=== PATIENT | male | born 1950 | race Caucasian/White ===

== ENCOUNTER → 2018-01-02 | Outpatient (REF) | payer BC, MEDICARE | LOC: M SMT 12:53 | DX: R97.20 Elevated prostate specific antigen [PSA] (principal) | CPT/HCPCS: 87086 ==

== ENCOUNTER 2019-02-17 10:17 | Day surgery (SDC) | payer MEDICARE, BC ==
[~2019-02-17] VITALS: Ht 170.2 cm; Wt 80.7 kg
[~2019-02-17 10:17] MED LIST: ADV100INH INH; CLOT1CRE2 TOP; D 101000 PO; ECOT81TA5 PO; FINA5TAB2 PO; FISH1000 PO; FLOM0.4C39 PO; FLUT50SP21; LIDOCAINE 2% INJ 100 MG/5 ML SDV (FOR ANES.) As Ordered ONE; LISI-542 PO; NEUR400C PO; NO ITAB PO; NS 1,000 ML IV ONE; PARO40TA3 PO; PROPOFOL 200 MG/20 ML VIAL As Ordered ONE; ROSU10TA6 PO; VENTAER INH; XANA0.25 PO; ZANT150T40 PO; ZETI10TA30 PO
[2019-02-17] MEDS ORDERED: PROPOFOL 200 MG/20 ML VIAL As Ordered ONE (11:17)
--- NOTE | 2019-02-17 11:20 | ROOR ---
Patient Name: Shay Chou Procedure Date: 02/17/2019 10:58 AM Date of : 1950 Age: 69 Room: [facility] Gender: Male Note Status: Finalized Procedure: Total Colonoscopy to Cecum Indications: Screening for colorectal malignant neoplasm Providers: North Ruano MD Referring MD: Cathy Aguilar DO Requesting Provider: Medicines: Monitored Anesthesia Care Complications: No immediate complications. Procedure: Pre-Anesthesia Assessment: - The heart rate, respiratory rate, oxygen saturations, blood pressure, adequacy of pulmonary ventilation, and response to care were monitored throughout the procedure. The Colonoscope was introduced through the anus and advanced to the cecum, identified by appendiceal orifice and ileocecal valve. The colonoscopy was performed without difficulty. The patient tolerated the procedure well. The quality of the bowel preparation was excellent. Findings: The perianal and digital rectal examinations were normal. Non-bleeding internal hemorrhoids were found during retroflexion. The hemorrhoids were small and Grade I (internal hemorrhoids that do not prolapse). Multiple small and large-mouthed diverticula were found in the recto-sigmoid colon, sigmoid colon and descending colon. The exam was otherwise without abnormality on direct and retroflexion views. Impression: - Non-bleeding internal hemorrhoids. - Diverticulosis in the recto-sigmoid colon, in the sigmoid colon and in the descending colon. - The examination was otherwise normal on direct and retroflexion views. - No specimens collected. - The exam was otherwise normal to the cecum. Recommendation: - Patient has a contact number available for emergencies. The signs and symptoms of potential delayed complications were discussed with the patient. Return to normal activities tomorrow. Written discharge instructions were provided to the patient. - High fiber diet. - Discharge patient to home. - Continue present medications. - Repeat colonoscopy for symptoms only. - Return to referring physician. - The findings and recommendations were discussed with the patient's family. North Ruano MD North Ruano MD 02/17/2019 11:19:51 AM Electronically signed by North Ruano MD Number of Addenda: 0 Note Initiated On: 02/17/2019 10:58 AM Estimated Blood Loss: Estimated blood loss: none.
[2019-02-17 11:42] VITALS: BP 105/64
== END 2019-02-17 11:44 | disposition home or self-care (01) ==
LOC: M OPP 10:17
PROVIDERS: ATTEND Internal Medicine Gastroenterology
DX: Z12.11 Encounter for screening for malignant neoplasm of colon (principal); K64.0 First degree hemorrhoids; K57.30 Diverticulosis of large intestine without perforation or abscess without bleeding; I10 Essential (primary) hypertension; E78.5 Hyperlipidemia, unspecified; K21.9 Gastro-esophageal reflux disease without esophagitis; R12 Heartburn; F41.9 Anxiety disorder, unspecified; G62.9 Polyneuropathy, unspecified; J44.9 Chronic obstructive pulmonary disease, unspecified; N40.1 Benign prostatic hyperplasia with lower urinary tract symptoms; Z88.1 Allergy status to other antibiotic agents; Z79.82 Long term (current) use of aspirin; Z79.899 Other long term (current) drug therapy

== ENCOUNTER → 2020-01-05 | Outpatient (REF) | payer MEDICARE, BC ==
[~2020-01-05] MED LIST changes: -CLOT1CRE2 TOP; +CLOT1CRE56 TOP; +FLUT15.820; -FLUT50SP21; -LIDOCAINE 2% INJ 100 MG/5 ML SDV (FOR ANES.) As Ordered ONE; -NS 1,000 ML IV ONE; -PROPOFOL 200 MG/20 ML VIAL As Ordered ONE; +ZETI10TA16 PO; -ZETI10TA30 PO
== END ==
LOC: M SMT 16:41
PROVIDERS: ATTEND Nurse Practitioner Family
DX: R97.20 Elevated prostate specific antigen [PSA] (principal); Z79.899 Other long term (current) drug therapy

== ENCOUNTER → 2020-08-05 | Outpatient (REF) | payer MEDICARE, BC ==
[2020-08-07 23:25] LABS: PSA TOTAL 2.3 ng/mL (0.0-4.0)
== END ==
LOC: M LAB REF 16:36
PROVIDERS: ATTEND Internal Medicine
DX: R97.20 Elevated prostate specific antigen [PSA] (principal)

== ENCOUNTER → 2020-12-03 | Outpatient (REF) | payer MEDICARE, BC ==
[~2020-12-03] MED LIST changes: -LISI-542 PO; +LISI-898 PO
== END ==
LOC: M LAB REF 12:08
PROVIDERS: ATTEND Internal Medicine
DX: G60.9 Hereditary and idiopathic neuropathy, unspecified (principal)

== ENCOUNTER → 2021-11-17 | Outpatient (CLI) | payer MEDICARE, BC ==
[~2021-11-17] MED LIST changes: -LISI-898 PO; +LISI5TAB11 PO
== END ==
LOC: M PLALAB 15:19
PROVIDERS: ATTEND Internal Medicine Pulmonary Disease
DX: Z11.52 Encounter for screening for COVID-19 (principal)

== ENCOUNTER → 2022-04-27 | Outpatient (CLI) | payer MEDICARE, BC | LOC: M WUC 11:57 | PROVIDERS: ATTEND Internal Medicine | DX: M25.551 Pain in right hip (principal) ==

== ENCOUNTER → 2022-11-21 | Outpatient (CLI) | payer OTHER | LOC: M PLAIMG 11:07 | PROVIDERS: ATTEND Internal Medicine Pulmonary Disease | DX: Z57.39 Occupational exposure to other air contaminants (principal) ==

== ENCOUNTER → 2022-11-25 | Outpatient (CLI) | payer MEDICARE, OTHER | LOC: M RAD 09:01 | PROVIDERS: ATTEND Nurse Practitioner Family | DX: M54.59 Other low back pain (principal) ==

== ENCOUNTER → 2022-12-07 | Outpatient (CLI) | payer MEDICARE, BC | LOC: M PLALAB 09:56 | PROVIDERS: ATTEND Physician Assistant | DX: R97.20 Elevated prostate specific antigen [PSA] (principal); Z88.1 Allergy status to other antibiotic agents | CPT/HCPCS: 36415; 84153; G0463 ==

== ENCOUNTER 2023-02-01 02:07 | Inpatient (IN) | payer MEDICARE, BC ==
[~2023-02-01] VITALS: Ht 170.2 cm; Wt 82.8 kg
[2023-02-01 02:41] LABS: BASO % 0.4 % (0.0-1.0); EOS # 0.3 10^3/uL (0.0-0.5); EOS % 3.3 % (0.0-3.0); HEMATOCRIT 41.8 % (42.0-52.0); HEMOGLOBIN 14.5 g/dl (13.5-17.5); LYMPH # 1.1 10^3/uL (1.5-5.0); LYMPH % 14.1 % (24.0-44.0); MEAN CORPUSCULAR HEMOGLOBIN 33.4 pg (27.0-33.0); MEAN CORPUSCULAR HGB CONC 34.7 g/dl (32.0-36.5); MEAN CORPUSCULAR VOLUME 96.3 fl (80.0-96.0); MONO # 0.9 10^3/uL (0.0-0.8); MONO % 11.6 % (2.0-8.0); NEUTROPHILS # 5.5 10^3/uL (1.5-8.5); NEUTROPHILS % 70.2 % (36.0-66.0); PLATELET COUNT, AUTOMATED 256 10^3/uL (150-450); RED BLOOD COUNT 4.34 10^6/uL (4.30-6.10); WHITE BLOOD COUNT 7.9 10^3/uL (4.0-10.0)
[2023-02-01 03:16] LABS: LIPASE 28 U/L (12-53)
[2023-02-01 03:18] LABS: ALKALINE PHOSPHATASE 71 U/L (46-116); ALT/SGPT 20 U/L (7.0-40); AST/SGOT 24 U/L (<34); BILIRUBIN,DIRECT 0.3 MG/DL (<0.4); BILIRUBIN,TOTAL 1.1 MG/DL (0.3-1.2); BLOOD UREA NITROGEN 26 MG/DL (9-23); CALCIUM LEVEL 9.1 MG/DL (8.3-10.6); CARBON DIOXIDE LEVEL 27 MMOL/L (20-31); CHLORIDE LEVEL 105 MMOL/L (98-107); CREATININE FOR GFR 1.03 MG/DL (0.70-1.30); GLOMERULAR FILTRATION RATE > 60.0 (>42); GLUCOSE, FASTING 132 MG/DL (74-106); POTASSIUM SERUM 4.1 MMOL/L (3.5-5.1); SODIUM LEVEL 141 MMOL/L (136-145); TOTAL PROTEIN 6.8 G/DL (5.7-8.2)
[2023-02-01] MEDS ORDERED: ISOVUE-370 76% 100ML VIAL As Ordered ONE (04:51)
[2023-02-01] MEDS ORDERED: ONDANSETRON 4MG 2ML VIAL IV ONE (05:00)
[2023-02-01] MEDS ORDERED: NS 1,000 ML IV ONE (05:00)
[2023-02-01] MEDS: MORPHINE 2 MG/ML 1ML VIAL IV PRN ×5 (05:16→13:25)
[2023-02-01 05:35] LABS: CK-MB VALUE MASS 2.1 NG/ML (<3.6)
[2023-02-01 05:44] LABS: CPK CREATINE PHOSPHOKINASE 270 U/L (46-171); MB/CK RELATIVE INDEX 0.77 (< OR =4)
[2023-02-01 05:46] LABS: RSV AMPLIFICATION NEGATIVE (NEGATIVE)
[2023-02-01 05:50] LABS: INR 0.9; PARTIAL THROMBOPLASTIN TIME 27.4 SECONDS (24.8-34.2); PROTHROMBIN TIME 12.3 SECONDS (12.5-14.5)
[2023-02-01] MEDS ORDERED: PIPERACILLIN/TAZOBACTAM SOD 3.375 GM in D5W MINI-BAG PLUS 50 ML IV ONE (06:35)
[2023-02-01] MEDS ORDERED: MED REC IN PROGRESS XX SCH (07:05)
[2023-02-01] MEDS ORDERED: LISI10TA22 PO (07:29)
[2023-02-01] MEDS ORDERED: PANT-23 PO (07:50)
[2023-02-01] MEDS ORDERED: KETO2CR TOP (07:50)
[2023-02-01] MEDS ORDERED: GLUCTAB7 PO (07:50)
[2023-02-01] MEDS ORDERED: DULO30CA9 PO (07:50)
[2023-02-01] MEDS ORDERED: VITA100093 PO (07:50)
[2023-02-01] MEDS ORDERED: CLIN1LOT TOP (07:50)
[2023-02-01] MEDS ORDERED: OMEG10002 PO (07:50)
[2023-02-01] MEDS ORDERED: LIDO1PAD TOP (07:50)
[2023-02-01] MEDS ORDERED: TRID0.1C TOP (07:50)
[2023-02-01] MEDS ORDERED: HOME MED LIST COMPLETE! XX SCH (07:55)
[2023-02-01] MEDS: ADVAIR HFA 45/21MCG INHALER INH SCH ×2 (08:00→19:48)
[2023-02-01] MEDS ORDERED: LIDOCAINE 5% (LIDODERM) PATCH TOP PRN (08:05)
[2023-02-01] MEDS ORDERED: ALBUTEROL 90 MCG/ACT 8GM HFA INHALER INH PRN (08:05)
[2023-02-01] MEDS ORDERED: PILL CUTTER 1 EACH XX PRN (08:20)
[2023-02-01 08:53] LABS: INR 0.93; PROTHROMBIN TIME 12.7 SECONDS (12.5-14.5)
[2023-02-01 08:58] VITALS: BP 142/77; TEMP 97.9; O2SAT 94
[2023-02-01] MEDS ORDERED: MORPHINE 4 MG/ML 1ML VIAL IV PRN (09:10)
[2023-02-01] MEDS: GABAPENTIN 400MG CAP PO SCH ×3 (09:23→21:25)
[2023-02-01] MEDS: ONDANSETRON 4MG ORAL DISINTEGRATING TAB SL PRN ×2 (09:24→13:24)
[2023-02-01] MEDS: PIPERACILLIN/TAZOBACTAM SOD 3.375 GM in D5W MINI-BAG PLUS 50 ML IV SCH ×3 (11:59→23:58)
[2023-02-01 14:30] VITALS: BP 113/69; TEMP 101.1; O2SAT 87
[2023-02-01] MEDS: ACETAMINOPHEN TAB 650MG DOSE (2X325MG) PO PRN ×2 (14:45→21:26)
[2023-02-01 15:29] VITALS: TEMP 100.1
[2023-02-01 16:26] VITALS: BP 105/70; TEMP 98.2; O2SAT 91
[2023-02-01 17:07] LABS: BASO % 0.2 % (0.0-1.0); HEMATOCRIT 40.4 % (42.0-52.0); HEMOGLOBIN 13.8 g/dl (13.5-17.5); LYMPH # 0.6 10^3/uL (1.5-5.0); LYMPH % 2.9 % (24.0-44.0); MEAN CORPUSCULAR HEMOGLOBIN 33.2 pg (27.0-33.0); MEAN CORPUSCULAR HGB CONC 34.2 g/dl (32.0-36.5); MEAN CORPUSCULAR VOLUME 97.1 fl (80.0-96.0); NEUTROPHILS # 17.7 10^3/uL (1.5-8.5); NEUTROPHILS % 88.2 % (36.0-66.0); PLATELET COUNT, AUTOMATED 254 10^3/uL (150-450); RED BLOOD COUNT 4.16 10^6/uL (4.30-6.10)
[2023-02-01] MEDS: LR 1,000 ML IV SCH (17:12)
[2023-02-01 17:35] LABS: MONO # 1.6 10^3/uL (0.0-0.8)
[2023-02-01 17:45] LABS: ALBUMIN 3.6 G/DL (3.2-5.2); ALKALINE PHOSPHATASE 60 U/L (46-116); ALT/SGPT 42 U/L (7.0-40); AST/SGOT 48 U/L (<34); BILIRUBIN,DIRECT 0.9 MG/DL (<0.4); BILIRUBIN,TOTAL 2.5 MG/DL (0.3-1.2); BLOOD UREA NITROGEN 23 MG/DL (9-23); CALCIUM LEVEL 9.1 MG/DL (8.3-10.6); CARBON DIOXIDE LEVEL 26 MMOL/L (20-31); CHLORIDE LEVEL 103 MMOL/L (98-107); CREATININE FOR GFR 1.06 MG/DL (0.70-1.30); GLOMERULAR FILTRATION RATE > 60.0 (>42); GLUCOSE, FASTING 108 MG/DL (74-106); POTASSIUM SERUM 4.1 MMOL/L (3.5-5.1); SODIUM LEVEL 137 MMOL/L (136-145); TOTAL PROTEIN 6.3 G/DL (5.7-8.2)
[2023-02-01 20:47] VITALS: BP 108/67; TEMP 98.2; O2SAT 93
[2023-02-01] MEDS: EZETIMIBE 10MG TABLET (ZETIA) PO SCH (21:24)
[2023-02-01] MEDS: OMEGA-3 1000MG CAPSULE PO SCH (21:24)
[2023-02-01] MEDS: VITAMIN D 1,000 INTERNATIONAL UNITS TABLET PO SCH (21:24)
[2023-02-01] MEDS: FINASTERIDE 5MG TAB PO SCH (21:24)
[2023-02-01] MEDS: ROSUVASTATIN 10 MG TAB (CRESTOR) PO SCH (21:25)
[2023-02-01] MEDS: PANTOPRAZOLE 40MG TAB (PROTONIX) PO SCH (21:25)
[2023-02-01] MEDS: TAMSULOSIN 0.4 MG CAP PO SCH (21:25)
[2023-02-02] VITALS (9 sets, daily range): BP systolic 100–117; BP diastolic 50–73; TEMP 97–99.7; O2SAT 90–92
[2023-02-02] MEDS: LR 1,000 ML IV SCH (01:34)
[2023-02-02 06:06] LABS: HEMOGLOBIN 12.8 g/dl (13.5-17.5); MEAN CORPUSCULAR HGB CONC 33.7 g/dl (32.0-36.5); MEAN CORPUSCULAR VOLUME 97.9 fl (80.0-96.0); PLATELET COUNT, AUTOMATED 212 10^3/uL (150-450); RED BLOOD COUNT 3.88 10^6/uL (4.30-6.10); WHITE BLOOD COUNT 13.1 10^3/uL (4.0-10.0)
[2023-02-02 06:25] LABS: BLOOD UREA NITROGEN 24 MG/DL (9-23); CALCIUM LEVEL 7.8 MG/DL (8.3-10.6); CARBON DIOXIDE LEVEL 29 MMOL/L (20-31); CHLORIDE LEVEL 104 MMOL/L (98-107); CREATININE FOR GFR 1.16 MG/DL (0.70-1.30); GLOMERULAR FILTRATION RATE > 60.0 (>42); GLUCOSE, FASTING 103 MG/DL (74-106); POTASSIUM SERUM 4.3 MMOL/L (3.5-5.1); SODIUM LEVEL 138 MMOL/L (136-145)
[2023-02-02 06:26] LABS: ALBUMIN 3.1 G/DL (3.2-5.2); BILIRUBIN,DIRECT 0.7 MG/DL (<0.4); BILIRUBIN,TOTAL 4.2 MG/DL (0.3-1.2); TOTAL PROTEIN 5.6 G/DL (5.7-8.2)
[2023-02-02] MEDS: PIPERACILLIN/TAZOBACTAM SOD 3.375 GM in D5W MINI-BAG PLUS 50 ML IV SCH ×3 (06:38→20:27)
[2023-02-02] MEDS: ADVAIR HFA 45/21MCG INHALER INH SCH ×2 (07:45→20:00)
[2023-02-02] MEDS: GABAPENTIN 400MG CAP PO SCH ×3 (09:14→20:27)
[2023-02-02] MEDS ORDERED: LIDOCAINE 1% SDV 30ML VIAL As Ordered ONE (15:03)
[2023-02-02] MEDS ORDERED: SUGAMMADEX SODIUM 500 MG/5 ML VIAL (BRIDION) As Ordered ONE (15:22)
[2023-02-02] MEDS ORDERED: MIDAZOLAM INJ 2MG/2ML VIAL As Ordered ONE (15:22)
[2023-02-02] MEDS ORDERED: LIDOCAINE 2% 100MG/5ML SDV (FOR ANES.) As Ordered ONE (15:22)
[2023-02-02] MEDS ORDERED: fentaNYL 100 MCG/2 ML INJECTION As Ordered ONE ×2 (15:22→17:01)
[2023-02-02] MEDS ORDERED: propofoL 200 MG/20 ML VIAL As Ordered ONE (15:23)
[2023-02-02] MEDS ORDERED: ROCURONIUM BROMIDE 50MG/5ML VIAL As Ordered ONE (15:23)
[2023-02-02] MEDS ORDERED: ONDANSETRON 4MG 2ML VIAL As Ordered ONE (15:25)
[2023-02-02] MEDS: INDOCYANINE GREEN 25MG VIAL (IC-GREEN) As Ordered ONE (16:19)
[2023-02-02] MEDS ORDERED: KETOROLAC 60MG 2ML VIAL As Ordered ONE (18:02)
[2023-02-02] MEDS ORDERED: PHENYLephrine 500MCG 5ML (100MCG/ML) SYRINGE As Ordered ONE (18:13)
[2023-02-02] MEDS ORDERED: fentaNYL 100 MCG/2 ML INJECTION IV PRN (18:20)
[2023-02-02] MEDS ORDERED: LR 1,000 ML IV SCH (18:20)
[2023-02-02] MEDS ORDERED: ONDANSETRON 4MG 2ML VIAL IV PRN (18:20)
[2023-02-02] MEDS: VITAMIN D 1,000 INTERNATIONAL UNITS TABLET PO SCH (20:27)
[2023-02-02] MEDS: PANTOPRAZOLE 40MG TAB (PROTONIX) PO SCH (20:27)
[2023-02-02] MEDS: ROSUVASTATIN 10 MG TAB (CRESTOR) PO SCH (20:27)
[2023-02-02] MEDS: FINASTERIDE 5MG TAB PO SCH (20:27)
[2023-02-02] MEDS: TAMSULOSIN 0.4 MG CAP PO SCH (20:27)
[2023-02-02] MEDS: OMEGA-3 1000MG CAPSULE PO SCH (20:27)
[2023-02-02] MEDS: ACETAMINOPHEN TAB 650MG DOSE (2X325MG) PO PRN (20:28)
[2023-02-02] MEDS: EZETIMIBE 10MG TABLET (ZETIA) PO SCH (20:32)
[2023-02-03] VITALS (8 sets, daily range): BP systolic 107–121; BP diastolic 59–69; TEMP 97.2–98.1; O2SAT 88–93
[2023-02-03] MEDS: PIPERACILLIN/TAZOBACTAM SOD 3.375 GM in D5W MINI-BAG PLUS 50 ML IV SCH ×4 (01:33→17:07)
[2023-02-03] MEDS: MORPHINE 2 MG/ML 1ML VIAL IV PRN (03:55)
[2023-02-03 06:31] LABS: HEMATOCRIT 35.6 % (42.0-52.0); HEMOGLOBIN 12.2 g/dl (13.5-17.5); MEAN CORPUSCULAR HGB CONC 34.3 g/dl (32.0-36.5); MEAN CORPUSCULAR VOLUME 99.2 fl (80.0-96.0); PLATELET COUNT, AUTOMATED 204 10^3/uL (150-450); RED BLOOD COUNT 3.59 10^6/uL (4.30-6.10); WHITE BLOOD COUNT 12.5 10^3/uL (4.0-10.0)
[2023-02-03 07:08] LABS: ALBUMIN 2.9 G/DL (3.2-5.2); ALKALINE PHOSPHATASE 63 U/L (46-116); ALT/SGPT 40 U/L (7.0-40); AST/SGOT 34 U/L (<34); BILIRUBIN,TOTAL 2.6 MG/DL (0.3-1.2); BLOOD UREA NITROGEN 18 MG/DL (9-23); CALCIUM LEVEL 8.2 MG/DL (8.3-10.6); CARBON DIOXIDE LEVEL 27 MMOL/L (20-31); CHLORIDE LEVEL 103 MMOL/L (98-107); CREATININE FOR GFR 1.16 MG/DL (0.70-1.30); GLOMERULAR FILTRATION RATE > 60.0 (>42); GLUCOSE, FASTING 132 MG/DL (74-106); POTASSIUM SERUM 4.1 MMOL/L (3.5-5.1); SODIUM LEVEL 138 MMOL/L (136-145); TOTAL PROTEIN 5.5 G/DL (5.7-8.2)
[2023-02-03] MEDS: ADVAIR HFA 45/21MCG INHALER INH SCH ×2 (08:14→19:19)
[2023-02-03] MEDS: ACETAMINOPHEN TAB 650MG DOSE (2X325MG) PO PRN (08:53)
[2023-02-03] MEDS: GABAPENTIN 400MG CAP PO SCH ×3 (08:53→21:39)
[2023-02-03] MEDS ORDERED: ASPIRIN 81MG ENTERIC TABLET PO SCH (21:00)
[2023-02-03] MEDS ORDERED: DULoxetine 30MG CAPSULE (CYMBALTA) PO SCH (21:00)
[2023-02-03] MEDS: EZETIMIBE 10MG TABLET (ZETIA) PO SCH (21:38)
[2023-02-03] MEDS: TAMSULOSIN 0.4 MG CAP PO SCH (21:38)
[2023-02-03] MEDS: OMEGA-3 1000MG CAPSULE PO SCH (21:38)
[2023-02-03] MEDS: VITAMIN D 1,000 INTERNATIONAL UNITS TABLET PO SCH (21:38)
[2023-02-03] MEDS: FINASTERIDE 5MG TAB PO SCH (21:39)
[2023-02-03] MEDS: ROSUVASTATIN 10 MG TAB (CRESTOR) PO SCH (21:39)
[2023-02-03] MEDS: PANTOPRAZOLE 40MG TAB (PROTONIX) PO SCH (21:39)
[2023-02-04 06:00] VITALS: BP 133/79; TEMP 98.2; O2SAT 90
[2023-02-04 06:38] LABS: HEMATOCRIT 33.5 % (42.0-52.0); HEMOGLOBIN 11.4 g/dl (13.5-17.5); MEAN CORPUSCULAR HEMOGLOBIN 33.4 pg (27.0-33.0); MEAN CORPUSCULAR VOLUME 98.2 fl (80.0-96.0); PLATELET COUNT, AUTOMATED 245 10^3/uL (150-450); RED BLOOD COUNT 3.41 10^6/uL (4.30-6.10); WHITE BLOOD COUNT 10.9 10^3/uL (4.0-10.0)
[2023-02-04] MEDS: PIPERACILLIN/TAZOBACTAM SOD 3.375 GM in D5W MINI-BAG PLUS 50 ML IV SCH ×3 (06:51)
[2023-02-04 07:11] LABS: BLOOD UREA NITROGEN 16 MG/DL (9-23); CALCIUM LEVEL 8.3 MG/DL (8.3-10.6); CARBON DIOXIDE LEVEL 28 MMOL/L (20-31); CHLORIDE LEVEL 107 MMOL/L (98-107); CREATININE FOR GFR 1.03 MG/DL (0.70-1.30); GLOMERULAR FILTRATION RATE > 60.0 (>42); GLUCOSE, FASTING 114 MG/DL (74-106); POTASSIUM SERUM 3.6 MMOL/L (3.5-5.1); SODIUM LEVEL 143 MMOL/L (136-145)
[2023-02-04] MEDS: ADVAIR HFA 45/21MCG INHALER INH SCH (07:30)
[2023-02-04] MEDS: GABAPENTIN 400MG CAP PO SCH (08:25)
[2023-02-04] MEDS ORDERED: AUGMENTIN 875 MG TAB PO SCH (09:00)
[2023-02-04] MEDS ORDERED: AMOX875T2 PO ×2 (11:18→14:11)
== END 2023-02-04 14:56 | disposition home or self-care (01) | DRG 418 ==
LOC: M ED 02:07 → M ED INP 07:48 → ENRESERV 08:14 → M MSPAV 09:24
PROVIDERS: ADMIT Student in an Organized Health Care Education/Training Program; ATTEND Student in an Organized Health Care Education/Training Program
PROC: 8E0W4CZ Robotic Assisted Procedure of Trunk Region, Percutaneous Endoscopic Approach (ICD-10-PCS; 2023-02-02)
PROC: BF52200 Other Imaging of Gallbladder using Fluorescing Agent, Indocyanine Green Dye, Intraoperative (ICD-10-PCS; 2023-02-02)
PROC: 0FT44ZZ Resection of Gallbladder, Percutaneous Endoscopic Approach (ICD-10-PCS; principal; 2023-02-02 15:00)
DX: K80.00 Calculus of gallbladder with acute cholecystitis without obstruction (principal); K56.7 Ileus, unspecified; J96.11 Chronic respiratory failure with hypoxia; I10 Essential (primary) hypertension; E78.5 Hyperlipidemia, unspecified; F32.A Depression, unspecified; G89.29 Other chronic pain; N40.0 Benign prostatic hyperplasia without lower urinary tract symptoms; K57.90 Diverticulosis of intestine, part unspecified, without perforation or abscess without bleeding; K21.9 Gastro-esophageal reflux disease without esophagitis; J45.909 Unspecified asthma, uncomplicated; J44.9 Chronic obstructive pulmonary disease, unspecified; K44.9 Diaphragmatic hernia without obstruction or gangrene; Z79.82 Long term (current) use of aspirin; Z79.899 Other long term (current) drug therapy; Z88.1 Allergy status to other antibiotic agents

== ENCOUNTER → 2023-11-26 | Outpatient (CLI) | payer OTHER, MEDICARE, BC ==
[~2023-11-26] MED LIST changes: +AMOX875T2 PO; +CLIN1LOT TOP; +DULO30CA9 PO; +EZET10TA58 PO; +GLUCTAB7 PO; +KETO2CR TOP; +LIDO1PAD TOP; +LISI10TA22 PO; +OMEG10002 PO; +PANT-23 PO; -ROSU10TA6 PO; +ROSU10TA61 PO; +TRID0.1C TOP; +VITA100093 PO; -ZETI10TA16 PO
== END ==
LOC: M PLAIMG 15:07
PROVIDERS: ATTEND Internal Medicine Pulmonary Disease
DX: Z57.39 Occupational exposure to other air contaminants (principal)

== ENCOUNTER → 2024-03-04 | Outpatient (REF) | payer BC, MEDICARE, OTHER | LOC: M SFHCADAM 16:51 | PROVIDERS: ATTEND Physician Assistant | DX: R21 Rash and other nonspecific skin eruption (principal); Z53.9 Procedure and treatment not carried out, unspecified reason ==

== ENCOUNTER → 2024-03-05 | Outpatient (CLI) | payer BC, MEDICARE, OTHER | LOC: M PLALAB 10:58 | PROVIDERS: ATTEND Physician Assistant | DX: R21 Rash and other nonspecific skin eruption (principal); Z11.3 Encounter for screening for infections with a predominantly sexual mode of transmission; Z72.89 Other problems related to lifestyle ==

== ENCOUNTER → 2024-11-25 | Outpatient (CLI) | payer OTHER, MEDICARE, BC ==
[~2024-11-25] MED LIST changes: -ADV100INH INH; +ADVA1AER8 INH; -FLOM0.4C39 PO; +TAMS-18 PO
== END ==
LOC: M PLAIMG 11:28
PROVIDERS: ATTEND Internal Medicine Pulmonary Disease
DX: Z57.39 Occupational exposure to other air contaminants (principal)

== ENCOUNTER 2025-02-16 13:26 | Emergency (ER) | payer OTHER, MEDICARE, BC ==
[~2025-02-16] VITALS: Ht 170.2 cm; Wt 81.8 kg
[2025-02-16] MEDS: ACETAMINOPHEN 500 MG TAB PO ONE (14:11)
[2025-02-16 15:40] VITALS: O2SAT 94
[2025-02-16 16:00] VITALS: BP 127/78; TEMP 97.8; O2SAT 94
== END 2025-02-16 16:02 | disposition home or self-care (01) ==
LOC: M ED 13:26
DX: S13.4XXA Sprain of ligaments of cervical spine, initial encounter (principal); S39.012A Strain of muscle, fascia and tendon of lower back, initial encounter; Y92.9 Unspecified place or not applicable; Y93.9 Activity, unspecified; Y99.9 Unspecified external cause status; V49.49XA Driver injured in collision with other motor vehicles in traffic accident, initial encounter; I10 Essential (primary) hypertension; E78.5 Hyperlipidemia, unspecified; F41.9 Anxiety disorder, unspecified; F32.A Depression, unspecified; Z88.1 Allergy status to other antibiotic agents; Z79.51 Long term (current) use of inhaled steroids; Z79.2 Long term (current) use of antibiotics; Z79.1 Long term (current) use of non-steroidal anti-inflammatories (NSAID); Z79.899 Other long term (current) drug therapy; Z79.810 Long term (current) use of selective estrogen receptor modulators (SERMs)

== ENCOUNTER → 2025-03-24 | Outpatient (CLI) | payer MEDICARE, OTHER | LOC: M SLEEP 20:00 | PROVIDERS: ATTEND Nurse Practitioner Family | DX: R53.82 Chronic fatigue, unspecified (principal); R06.83 Snoring ==

== ENCOUNTER → 2025-04-02 | Outpatient (CLI) | payer OTHER, MEDICARE ==
[2025-04-02 19:12] LABS: VITAMIN B12 LEVEL 304.0 PG/ML (211-911)
[2025-04-02 19:41] LABS: ESTIMATED AVERAGE GLUCOSE 108.0 MG/DL (60-110)
[2025-04-05 01:37] LABS: T P ELECTROPHORESIS SO 6.9 g/dL (6.1-8.1)
[2025-04-06 12:16] LABS: PROTEIN CREATININE RATIO 79 mg/g creat (25-148); T PROTEIN CREATININE RATIO 0.079 (0.025-0.148); UPEP CREATININE 191 mg/dL (20-320); UPEP TOTAL PROTEIN 15 mg/dL (5-25)
== END ==
LOC: M WUC 14:48
PROVIDERS: ATTEND Psychiatry & Neurology Neurology
DX: E53.8 Deficiency of other specified B group vitamins (principal); E51.9 Thiamine deficiency, unspecified; E53.1 Pyridoxine deficiency; G62.9 Polyneuropathy, unspecified; E11.9 Type 2 diabetes mellitus without complications

== ENCOUNTER → 2025-04-06 | Outpatient (REF) | payer OTHER, MEDICARE | LOC: M LABDRAWC 11:56 → M LABWUC 11:56 | PROVIDERS: ATTEND Psychiatry & Neurology Neurology | DX: E11.9 Type 2 diabetes mellitus without complications (principal); D51.9 Vitamin B12 deficiency anemia, unspecified; G62.9 Polyneuropathy, unspecified ==